=== PATIENT | female | born 1950 | race Caucasian/White ===

== ENCOUNTER 2020-02-18 15:40 | Emergency (ER) | payer MEDICARE, OTHER ==
[2020-02-18] MEDS ORDERED: METOPROLOL SUCC50 M1 PO (15:59)
[2020-02-18] MEDS ORDERED: ASPIRIN E.C. 8181 MG PO (15:59)
[2020-02-18] MEDS ORDERED: CELEBREX 200MG200 MG PO (16:00)
[2020-02-18] MEDS ORDERED: EZETIMIBE10 M1 PO (16:00)
[2020-02-18 16:51] LABS: CALCIUM 8.8 mg/dL (8.3-10.5); POTASSIUM 3.6 mmol/L (3.5-5.1)
[2020-02-18 16:52] LABS: ALBUMIN 3.6 g/dL (3.4-4.8); HEMOGLOBIN 14.4 g/dL (12.5-16.0); MEAN CELL VOLUME 86 fl (78-100); MEAN CORPUSCULAR HEMOGLOBIN 28 pg (27-31); MEAN CORPUSCULAR HGB CONC 33 g/dL (33-37); MEAN PLATELET VOLUME 10.7 fl (7.4-10.4); PLATELET COUNT 219 K/mm3 (130-400); RED BLOOD COUNT 5.12 M/mm3 (4.10-5.30); RED CELL DISTRIBUTION WIDTH 13.7 % (11.5-14.5); WHITE BLOOD COUNT 8.7 K/mm3 (4.8-10.8)
[2020-02-18 16:56] LABS: LYMPHOCYTE 11 % (20-51); MONOCYTE 11 % (3-10); NEUTROPHILS 75 % (42-75)
[2020-02-18 16:57] LABS: BAND 1 % (0-10)
[2020-02-18 16:59] LABS: TOTAL BILIRUBIN 0.6 mg/dL (0.2-1.2); TOTAL PROTEIN 6.9 g/dL (6.2-8.1)
[2020-02-18 17:22] LABS: D-DIMER 0.77 mg/L FEU (0.15-0.50)
[2020-02-18 18:03] LABS: URINE APPEARANCE CLEAR; URINE BILIRUBIN NEGATIVE (NEGATIVE); URINE BLOOD NEGATIVE (NEGATIVE); URINE COLOR YELLOW; URINE GLUCOSE NEGATIVE (NEGATIVE); URINE KETONE NEGATIVE (NEGATIVE); URINE LEUKOCYTE ESTERASE TRACE (NEGATIVE); URINE NITRATE NEGATIVE (NEGATIVE); URINE PROTEIN(semi-quant) 1+ mg/dL (NEGATIVE); URINE UROBILINOGEN NORMAL (NORMAL)
[2020-02-18 18:04] LABS: URINE MUCUS PRESENT (NOT PRESENT)
[2020-02-18 22:22] VITALS: BP 136/71
== END 2020-02-18 22:22 | disposition short-term general hospital (02) ==
LOC: ED 15:40
PROVIDERS: Family Medicine
DX: U07.1 COVID-19 (principal); I10 Essential (primary) hypertension; E78.5 Hyperlipidemia, unspecified; I25.10 Atherosclerotic heart disease of native coronary artery without angina pectoris; Z95.5 Presence of coronary angioplasty implant and graft; Z79.82 Long term (current) use of aspirin
CPT/HCPCS: J0456; J0696; J1100; J7050

== ENCOUNTER → 2021-07-04 | Outpatient (CLI) | payer MEDICARE, OTHER ==
[~2021-07-04] MED LIST: ASPIRIN E.C. 8181 MG PO; CELEBREX 200MG200 MG PO; EZETIMIBE10 M1 PO; METOPROLOL SUCC50 M1 PO
== END ==
LOC: RAD 08:48
DX: K76.0 Fatty (change of) liver, not elsewhere classified (principal)

== ENCOUNTER → 2021-07-17 | Outpatient (CLI) | payer MEDICARE, OTHER | LOC: RAD 12:57 | DX: R10.11 Right upper quadrant pain (principal); R10.13 Epigastric pain; M54.89 Other dorsalgia; R63.4 Abnormal weight loss | CPT/HCPCS: Q9967 ==